=== PATIENT | male | born 2005 | race Two or more races ===

== ENCOUNTER 2025-04-18 15:05 | Emergency (ER) | payer MEDICAID, SELFPAY ==
[2025-04-18 15:17] VITALS: BP 165/89; PULSE 118; RESP 18; TEMP 37.2; O2SAT 97; BMI 31.0
--- NOTE | 2025-04-18 15:21 | PD.EDRME ---
Rapid Medical Screening Exam RME Arrival date/time: 04/18/25 15:05 Chief Complaint: Wound/Laceration Time Seen by Provider: 04/18/25 15:15 RME Narrative: 19-year-old male [id number], who was cutting kerri, presents to the ER complaining of left fifth digit laceration on the dorsum of his hand and weakness with extension of his finger which occurred just prior to arrival. Unknown Tdap.
--- NOTE | 2025-04-18 15:23 | XR_ITS ---
Examination: Fingers, left hand fifth digit 3 views Technique: AP, oblique, lateral views April 18, 2025, 1527 hours INDICATIONS: Laceration to the fifth digit today pain. Exam date and time: April 18, 2025, 132 hours FINDINGS: Soft tissue swelling about the fifth digit No opaque foreign body No fracture IMPRESSION: No opaque foreign body
--- NOTE | 2025-04-18 15:30 | PC.NURSE ---
Patient accidently cut himself with knife while cutting lemon.
[2025-04-18] MEDS: DIPHTH,PERTUSS(ACELL),TET VAC 0.5 ML SYR- ADULT IMi (15:40)
[2025-04-18] MEDS: HYDROcodone/APAP 5/325 TABLET 1 TAB PO (15:40)
[2025-04-18] MEDS: LIDOCAINE HCL 1% 20 ML VIAL INFL (15:43)
--- NOTE | 2025-04-18 16:41 | PD.EDWOUND ---
ED Wound/Laceration-RME/HPI General Chief Complaint: Wound/Laceration Stated Complaint: LAC TO LEFT HAND Time Seen by Provider: 04/18/25 15:15 Arrival date/time: 04/18/25 15:05 RME / HPI RME / HPI narrative: 19-year-old male [id number], who was cutting kerri, presents to the ER complaining of left fifth digit laceration on the dorsum of his hand and weakness with extension of his finger which occurred just prior to arrival. Unknown Tdap. Related Data Previous Rx's ?Medication ?Instructions ?Recorded cephalexin 500 mg capsule 500 mg PO QID 10 days #40 caps 04/18/25 Allergies Allergy/AdvReac Type Severity Reaction Status Date / Time No Known Allergies Allergy Verified 04/18/25 15:09 ED Exam Narrative Physical exam: Constitutional: Vital Signs Reviewed. Well appearing. No acute distress. Not toxic appearing. Head: Normocephalic, atraumatic. Eyes: Conjunctiva clear. ENT: Mucous membranes moist. Neck: Trachea midline. Normal range of motion. No nuchal rigidity. Respiratory: Normal effort. No respiratory distress or accessory muscle use. Neuro: Alert and oriented. Speech normal. No focal gross motor or sensory deficits observed. Left upper extremity: Inability to extend 5th digit at DIP joint limited range of motion secondary to pain in affected digit, with capillary refill <2 seconds. Laceration noted on radial aspect of this digit which is irregular in nature and extending into the muscle layer with muscle involvement. No visualized tendon. Flexion is intact at DIP joint with full range of motion and strength 5 out of 5. MCP and PIP joint of 5th digit have flexion and extension intact with strength 5/5 and FROM. Additionally note another laceration is noted to the left thenar eminence which is 3-1/2 cm and L-shaped this wound was explored to the base without deep space structure injury. FROM and Strength 5/5 for all other digits at MCP, PIP, DIP joints. FDP function intact (DIP flexion preserved upon isolation). Confirms flexor digitorum profundus integrity. FDS function intact (PIP flexion preserved upon isolation). Confirms flexor digitorum superficialis integrity. Thumb: abduction and adduction intact; flexion and extension intact at MCP and IP joint. Sensation intact to light touch in radial, ulnar, and median nerve distributions. No snuffbox tenderness. Skin: Warm, dry, normal color. Psych: Pleasant. Normal affect. Cooperative. Course Course Course Narrative: T I spoke with Althea the credit administration officer attempting to reach Dr. Vaughan at 4:30PM Quality Measures none Orders Category Date Time Status Set Up Suture Tray STAT Care 04/18/25 15:23 Active XR finger LT min 2V Stat Exams 04/18/25 15:23 Completed HYDROcodone*/APAP 5/325 [[place] 5/325] Med 04/18/25 15:32 Discontinued 1 tab PO X1 ONE Lidocaine 1% 20 ml [Xylocaine 1% 20 ML] Med 04/18/25 15:23 Discontinued 20 ml INFL X1 ONE TET,DIP/PERT AC (Adult)-Tdap [Boostrix Adult (Tdap) Med 04/18/25 15:23 Discontinued Vacc] 0.5 ml IMI .ONCE ONE cephALEXin [Keflex] Med 04/18/25 16:38 Discontinued 500 mg PO X1 ONE Reevaluation(s) Reevaluation #1: At the time of reassessment, the patient remains alert and oriented ?3 with GCS 15. Vitals are normal, pain is controlled, and the patient is tolerating oral intake without nausea or vomiting. The patient is agreeable to discharge and verbalizes understanding of the diagnosis, studies, treatment plan, medications (including side effects/precautions), and strict ER return precautions as discussed in the ED. All concerns were addressed, and the patient is comfortable with the plan. Left hand remains distally neurovascular intact with ulnar gutter splint in place. Vital Signs Vital signs: Vital Signs Temperature 99 F 04/18/25 15:17 Pulse Rate 118 H 04/18/25 15:17 Respiratory Rate 18 04/18/25 15:17 Blood Pressure 165/89 H 04/18/25 15:17 Pulse Oximetry (%) 97 04/18/25 15:17 Oxygen Delivery Method Room Air 04/18/25 15:17 PROCEDURES: Laceration Laceration 1: Site: hand Side (If applicable): left Size (cm): 5 Description: irregular Depth: simple, single layer, involves muscle layer and involves tendon Local Anesthetic: lidocaine 1% Amount of anesthesia used (mL): 5 Pre-repair: wound explored and irrigated extensively Skin layer closed with: nylon Suture size (cm): 4-0 Number of sutures: 5 Technique: simple, interrupted Laceration 2: Site: hand Side (If applicable): left Size (cm): 3.5 Description: linear and other Depth: simple, single layer Local Anesthetic: lidocaine 1% Amount of anesthesia used (mL): 5 Pre-repair: wound explored and irrigated extensively Skin layer closed with: nylon Suture size (cm): 4-0 Number of sutures: 3 Technique: simple, interrupted Wound / Laceration MDM Narrative MDM Narrative:: Concern for laceration Wound explored to base without FB however deep structures were involved on the left fifth digit including the muscle layer which resulted in patient's inability to extend PIP joint however on the thenar aspect no deep structures were involved XR without f/x or dislocation or FB tdap updated, wound thoroughly irrigated, wound well approximated, Keflex given prophylactically, ulnar gutter splint placed along with sterile dry dressing Have attempted to contact a hand surgeon in the area and a facesheet has been faxed to their office in hopes of arranging an expedited outpatient follow-up Case and plan was discussed with and agreed upon with Dr. Chu at 4:00PM Advised wound care edu, inevitable scar formation, need to return without fail for suture removal and to follow-up with Dr. Pickett in Dr. Campos's office ELLEN Hand and digits remains DNVI with soft compartments Patient data External records reviewed:: None Clinical information provided by:: patient Social determinants that could affect healthcare access:: none Patient has the following chronic illnesses:: None How is presenting disease/condition affected by chronic disease/condition?: no chronic disease Evaluation data The following diagnostics were reviewed and interpreted by me:: other (specify) Lab and/or radiology exams considered but not ordered:: Labs and radiology considered, but not ordered as they were not clinically indicated at this time. Interpretation Summary: As noted Medications / Prescriptions Medications or Prescriptions considered but not ordered:: I considered prescription management (both outpatient prescriptions AND drug treatment in the ER) and decided that this was necessary and was prescribed as charted. Medication administrations:: Medication Administration History Discontinued Medications Hydrocodone Bitart/Acetaminophen (Hydrocodone/Apap 5/325 Tablet) 1 tab PO X1 ONE Stop: 04/18/25 15:33 Last Admin: 04/18/25 15:40 Dose: 1 tab Documented By: ELVIRA Cephalexin HCl (Cephalexin 250 Mg Capsule) 500 mg PO X1 ONE Stop: 04/18/25 16:39 Last Admin: 04/18/25 17:14 Dose: 500 mg Documented By: ELVIRA Diphtheria/Tetanus/Acell Pertussis (Diphth,Pertuss(Acell),Tet Vac 0.5 Ml Syr- Adult) 0.5 ml IMi .ONCE ONE Stop: 04/18/25 15:24 Last Admin: 04/18/25 15:40 Dose: 0.5 ml Documented By: ELVIRA Lidocaine HCl (Lidocaine Hcl 1% 20 Ml Vial) 20 ml INFL X1 ONE Stop: 04/18/25 15:24 Last Admin: 04/18/25 15:43 Dose: 20 ml Documented By: ELVIRA Comments: administered by provider As noted Consultations Consultation(s) initiated? (list below): Yes Consultation #1 (Physician, Specialty, Details): Althea credit administration officer advised sending facesheet to [phone] Dr. Vaughan is unavailable for consult but Dr Pickett might be available, he is operating at the moment. Time: 17:02 Diagnosis Wound Differential Diagnosis: laceration and abrasion Most likely diagnosis given after review of the tests above:: Laceration Admission Indicated Admission indicated?: not indicated Admission Request Was there a request for admission?: No Disposition Plan Disposition Plan: Discharge Discharge Attestation Discharge Attestation: The patient and all family members were given an opportunity to ask questions and understood the discharge instructions. Discharge instructions specifically effects, indications for sooner follow up or return to the emergency department, and the expected course of current diagnosis. Patient condition: Stable Discharge Plan Plan Patient Disposition: HOME (Self Care) Patient condition on transfer: Stable Prescriptions/Referrals Prescriptions/Med Rec: New cephalexin 500 mg capsule 500 mg PO QID 10 Days Qty: 40 0RF Referrals: No Primary/Family,Physician [Primary Care Provider] - In 1 week Problem List Clinical Impression: Extensor tendon laceration of finger with open wound, Laceration Patient/Caregiver Discharge Instructions Education Materials: ED Splint Care, Fiberglass, ED Tendon Laceration, ED Laceration Hand with ... Additional Instructions: Follow-up as soon as possible with a hand surgeon at [address] [place] [address] you can call the office at [phone] to schedule your appointment[address] Dr. Mooney works in this office as well asother hand surgeons. Follow up with your primary medical doctor and a hand surgeon within 48 hours. Return to the Emergency Room immediately for any new, worsening, continuing symptoms or any concerns at all. Return to the Emergency Room within 48 hours if you are unable to follow up with your primary medical doctor and a hand surgeon within 48 hours. Return to the ER in 10 to 12 days for suture removal. Print Language: Yoruba Stand Alone Forms: Ragini Award Info., Patient Portal Info Letter PA/ASSISTANT INFANT TODDLER TEACHER Supervising Physician PA/ABNER Supervising Physician: Dr. Chu
[2025-04-18 17:12] VITALS: BP 148/89; PULSE 99; RESP 16; TEMP 37.2; O2SAT 98
== END 2025-04-18 19:08 | disposition home or self-care (01) ==
PROVIDERS: Emergency Provider Emergency Medicine
DX: S61.412A Laceration without foreign body of left hand, initial encounter (principal); S66.329A Laceration of extensor muscle, fascia and tendon of unspecified finger at wrist and hand level, initial encounter
CPT/HCPCS: 12002; 29125; 73140; 90471; 90715; 99284; J3490; A9270